=== PATIENT | female | born 1970 | race African-American/Black ===

== ENCOUNTER 2017-06-22 15:21 | Emergency (ER) | payer OTHER ==
[~2017-06-22] VITALS: Ht 172.7 cm; Wt 68.0 kg
[2017-06-22] MEDS ORDERED: HYDROCODONE-AP1 EAC6 PO (16:51)
[2017-06-22 17:31] VITALS: BP 176/82
== END 2017-06-22 17:32 | disposition home or self-care (01) ==
LOC: ER 15:21
DX: F10.99 Alcohol use, unspecified with unspecified alcohol-induced disorder (principal); S92.352A Displaced fracture of fifth metatarsal bone, left foot, initial encounter for closed fracture; Z88.0 Allergy status to penicillin; W10.8XXA Fall (on) (from) other stairs and steps, initial encounter; Y93.89 Activity, other specified; Y92.89 Other specified places as the place of occurrence of the external cause; Y99.8 Other external cause status